=== PATIENT | female | born 1990 | race Caucasian/White ===

== ENCOUNTER 2016-05-24 12:18 | Inpatient (IN) | payer OTHER ==
[2016-05-24] VITALS (8 sets, daily range): BP systolic 122–138; BP diastolic 64–78; PULSE 78–118; RESP 15–18; TEMP 98.3–100.7; O2SAT 96–99
[~2016-05-24] VITALS: Ht 172.7 cm; Wt 75.8 kg
[~2016-05-24 12:18] MED LIST: CYTO5TAB PO; DIFL150T PO; HUMALOG SQ; IBUP-232 PO; LANTUS2P SQ; SYNT300T PO; ULTR50TA5 PO
[2016-05-24] MEDS ORDERED: SODIUM CHLOR 0.9% 1000 ML INJ 1,000 ML IV SCH ×2 (13:37→16:46)
[2016-05-24] MEDS ORDERED: ONDANSETRON HCL 4 MG/2 ML VIAL IVP ONE (13:45)
[2016-05-24] MEDS ORDERED: KETOROLAC TROMETHAMINE 30 MG/ML (IVP) VIAL IVP ONE (13:45)
[2016-05-24] MEDS ORDERED: SODIUM CHLORIDE 0.9% FLUSH 5 ML FLUSH IVF PRN (13:45)
[2016-05-24] MEDS ORDERED: ACETAMINOPHEN 325 MG TAB PO ONE (13:45)
[2016-05-24] MEDS ORDERED: cefTRIAXone INJ 1,000 MG in SODIUM CHLORIDE 0.9% INJ 100 ML IV ONE (13:45)
[2016-05-24] MEDS ORDERED: MORPHINE SULFATE 4 MG/ML INJ IV PUSH ONE (13:45)
[2016-05-24 13:55] LABS: AUTOMATED NEUTROPHIL # 13.5 TH/MM3 (1.8-7.7); BASOPHIL # 0.1 TH/MM3 (0-0.2); BASOPHIL % 0.4 % (0.0-2.0); EOSINOPHIL % 0.1 % (0.0-4.0); HEMATOCRIT 39.1 % (35.0-46.0); LYMPH % 8.3 % (9.0-44.0); LYMPHOCYTE # 1.3 TH/MM3 (1.0-4.8); MEAN CELL VOLUME 87.6 FL (80.0-100.0); MEAN CORPUSCULAR HEMOGLOBIN 30.6 PG (27.0-34.0); MONO % 5.9 % (0.0-8.0); NEUT % 85.3 % (16.0-70.0); PLATELET COUNT 257 TH/MM3 (150-450); RED BLOOD COUNT 4.46 MIL/MM3 (4.00-5.30); RED CELL DISTRIBUTION WIDTH 11.4 % (11.6-17.2); WHITE BLOOD COUNT 15.8 TH/MM3 (4.0-11.0)
[2016-05-24 13:56] LABS: HEMO FLAGS DIFF FINAL
--- NOTE | 2016-05-24 14:00 | PD ---
HPI Chief Complaint: GI Complaint Time Seen by Provider: 13:20 Travel History International Travel<30 days: No Contact w/Intl Traveler<30days: No Traveled to known affect area: No History of Present Illness HPI The patient is a 26-year-old female who presents emergency department for right flank pain. The patient states she was seen in the emergency department several days ago for pelvic discomfort. The patient had a pelvic examination at that time and was diagnosed the [place] infection. The patient states she returned home and took the Diflucan, however, she subsequently developed nausea and vomiting. The patient states she's had persistent nausea and vomiting of last several days with increasing right flank pain radiated up to the mid right back. She does note nausea and vomiting but denies any diarrhea. She also complains of dysuria, frequency, and urgency. She denies any vaginal bleeding or discharge. The patient states her last menstrual cycle was 2 weeks ago. She denies , does not have sexual activity with men. The patient denies any previous abdominal surgeries. She denies any history of pancreatitis, cholecystitis, or nephrolithiasis. PFSH Past Medical History Arthritis: Yes Asthma: Yes Bipolar Disorder: Yes Anxiety: Yes Depression: Yes Cancer: No Cardiovascular Problems: Yes Diabetes: Yes (Type 1) Patient Takes Glucophage: No Diminished Hearing: No Endocrine: Yes Gastrointestinal Disorders: Yes (OCCASIONAL DIARRHEA /CONSTIPATION) GERD: Yes Genitourinary: Yes Headaches: Yes Hypertension: Yes Immune Disorder: Yes (CATHLEEN DISEASE) Implanted Vascular Access Dvce: Yes Musculoskeletal: Yes Neurologic: Yes Psychiatric: Yes Reproductive: Yes (VAGINAL DRYNESS PER PATIENT) Respiratory: Yes Immunizations Current: Yes Migraines: Yes Schizophrenia: Yes Thyroid Disease: Yes ?: Not LMP: 2 weeks ago Past Surgical History Body Medical Devices: BCP IMPLANT LEFT UPPER ARM Oral Surgery: Yes (T AND A- AGE 8, WISDOM TEETH-AGE 16) Tonsillectomy: Yes Other Surgery: No Social History Alcohol Use: Yes (OCC) Tobacco Use: Yes (1 pk) Substance Use: No Allergies-Medications (Allergen,Severity, Reaction): Coded Allergies: No Known Allergies (Unverified , 05/24/16) Reported Meds & Prescriptions Reported Meds & Active Scripts Active Ibuprofen 600 Mg Tab 600 Mg PO Q6H PRN Ultram (Tramadol HCl) 50 Mg Tab 50 Mg PO Q6H PRN Reported Cytomel (Liothyronine Sodium) 5 Mcg Tab 5 Mcg PO DAILY Synthroid (Levothyroxine Sodium) 300 Mcg Tab 300 Mcg PO DAILY Lantus Inj (Insulin Glargine) 1,000 Unit/10 Ml Vial 30 Units SQ HS Humalog Inj (Insulin Human Lispro) 1,000 Unit/10 Ml Vial 2-12 Units SQ ACHS Max dose at bedtime:( )units; sugars < 70,(0)units; sugars 150-199,(2)units; sugars 200-249,(4)units; sugars 250-299,(7)units; sugars 300-349,(10)units; sugars more than 349,(12)units. Review of Systems Except as stated in HPI: all other systems reviewed are Neg General / Constitutional: Positive: Fever, Chills Cardiovascular: No: Chest Pain or Discomfort Respiratory: No: Shortness of Breath Gastrointestinal: Positive: Nausea, Vomiting, Abdominal Pain, No: Diarrhea Genitourinary: Positive: Urgency, Frequency, Dysuria, Flank Pain Musculoskeletal: Positive: Myalgias Skin: No Rash Physical Exam Narrative GENERAL: Awake, alert, pleasant 26 year-old female who appears her stated age and is in no acute respiratory distress. SKIN: Warm and dry. HEAD: Atraumatic. Normocephalic. EYES: Pupils equal and round. No scleral icterus. No injection or drainage. ENT: No nasal bleeding or discharge. Slightly dry mucous membranes.. NECK: Trachea midline. No JVD. CARDIOVASCULAR: Regular, tachycardic with a heart rate of 110. RESPIRATORY: No accessory muscle use. Clear to auscultation. Breath sounds equal bilaterally. GASTROINTESTINAL: Abdomen soft, mild suprapubic tenderness. Back: Right CVA tenderness. MUSCULOSKELETAL: No obvious deformities. No clubbing. No cyanosis. No edema. NEUROLOGICAL: Awake and alert. No obvious cranial nerve deficits. Motor grossly within normal limits. Normal speech. PSYCHIATRIC: Appropriate mood and affect; insight and judgment normal. Data Data Last Documented VS Vital Signs Date Time Temp Pulse Resp B/P Pulse Ox O2 Delivery O2 Flow Rate FiO2 05/24/16 16:36 98.3 80 15 136/72 98 Room Air Orders Complete Blood Count With Diff (05/24/16 13:37) Comprehensive Metabolic Panel (05/24/16 13:37) Lipase (05/24/16 13:37) Lactic Acid (05/24/16 13:37) Urinalysis - C+S If Indicated (05/24/16 13:37) Iv Access Insert/Monitor (05/24/16 13:37) Ecg Monitoring (05/24/16 13:37) Oximetry (05/24/16 13:37) Morphine Inj (Morphine Inj) (05/24/16 13:45) Ondansetron Inj (Zofran Inj) (05/24/16 13:45) Ceftriaxone Inj (Rocephin Inj) (05/24/16 13:45) Sodium Chlor 0.9% 1000 Ml Inj (Ns 1000 M (05/24/16 13:37) Sodium Chloride 0.9% Flush (Ns Flush) (05/24/16 13:45) Ketorolac Inj (Toradol Inj) (05/24/16 13:45) Ed Urine Pregnancytest Poc (05/24/16 13:37) Acetaminophen (Tylenol) (05/24/16 13:45) Sodium Chlor 0.9% 1000 Ml Inj (Ns 1000 M (05/24/16 16:00) Urine Culture (05/24/16 15:02) Resp Blood Gas Venous (05/24/16 ) Beta Hydroxybutyrate (Acetone) (05/24/16 15:48) Ct Abd/Pel W/O Iv Contrast (05/24/16 ) Blood Gas Venous (Vbg) (05/24/16 16:00) Sodium Chlor 0.9% 1000 Ml Inj (Ns 1000 M (05/24/16 16:46) Dext 5%-Nacl 0.9% 1000 Ml Inj (D5w-Ns 10 (05/24/16 16:46) Insulin Human Regular Inj (Novolin R Inj (05/24/16 17:00) Insulin Regular (Iv Infusion) (Novolin R (05/24/16 17:00) Potassium Chlor 40 Meq Premix (Kcl 40 Me (05/24/16 17:00) Potassium Chlor 40 Meq Premix (Kcl 40 Me (05/24/16 17:00) Potassium Chlor 20 Meq Premix (Kcl 20 Me (05/24/16 17:00) Potassium Chlor 20 Meq Premix (Kcl 20 Me (05/24/16 17:00) Potassium Chlor 20 Meq Premix (Kcl 20 Me (05/24/16 17:00) Potassium Chlor 20 Meq Premix (Kcl 20 Me (05/24/16 17:00) Potassium Chlor 20 Meq Premix (Kcl 20 Me (05/24/16 17:00) Potassium Chlor 20 Meq Premix (Kcl 20 Me (05/24/16 17:00) Sodium Bicarbonate 8.4% Inj (Sodium Bica (05/24/16 17:00) Sodium Bicarbonate 8.4% Inj (Sodium Bica (05/24/16 17:00) Sodium Phosphate Inj (Sodium Phosphate I (05/24/16 17:00) Admit Order (Ed Use Only) (05/24/16 17:47) Labs Laboratory Tests Test 05/24/16 05/24/16 05/24/16 13:45 15:02 16:00 White Blood Count 15.8 TH/MM3 Red Blood Count 4.46 MIL/MM3 Hemoglobin 13.7 GM/DL Hematocrit 39.1 % Mean Corpuscular Volume 87.6 FL Mean Corpuscular Hemoglobin 30.6 PG Mean Corpuscular Hemoglobin 35.0 % Concent Red Cell Distribution Width 11.4 % Platelet Count 257 TH/MM3 Mean Platelet Volume 7.4 FL Neutrophils (%) (Auto) 85.3 % Lymphocytes (%) (Auto) 8.3 % Monocytes (%) (Auto) 5.9 % Eosinophils (%) (Auto) 0.1 % Basophils (%) (Auto) 0.4 % Neutrophils # (Auto) 13.5 TH/MM3 Lymphocytes # (Auto) 1.3 TH/MM3 Monocytes # (Auto) 0.9 TH/MM3 Eosinophils # (Auto) 0.0 TH/MM3 Basophils # (Auto) 0.1 TH/MM3 CBC Comment DIFF FINAL Differential Comment Sodium Level 134 MEQ/L Potassium Level 4.0 MEQ/L Chloride Level 101 MEQ/L Carbon Dioxide Level 15.9 MEQ/L Anion Gap 17 MEQ/L Blood Urea Nitrogen 9 MG/DL Creatinine 0.60 MG/DL Estimat Glomerular Filtration 121 ML/MIN Rate Random Glucose 271 MG/DL Lactic Acid Level 1.0 mmol/L Calcium Level 8.8 MG/DL Total Bilirubin 0.7 MG/DL Aspartate Amino Transf 8 U/L (AST/SGOT) Alanine Aminotransferase 18 U/L (ALT/SGPT) Alkaline Phosphatase 67 U/L Total Protein 7.0 GM/DL Albumin 3.1 GM/DL Lipase 54 U/L Urine Collection Type VOIDED Urine Color YELLOW Urine Turbidity CLEAR Urine pH 6.0 Urine Specific [place] 1.030 Urine Protein TRACE mg/dL Urine Glucose (UA) 500 mg/dL Urine Ketones 80 OR GREATER mg/dL Urine Occult Blood TRACE Urine Nitrite NEG Urine Bilirubin NEG Urine Leukocyte Esterase NEG Urine WBC 9-14 /hpf Urine Squamous Epithelial 0-2 /hpf Cells Urine Bacteria RARE /hpf Microscopic Urinalysis Comment CULTURE INDICATED Blood Gas Puncture Site IV Blood Gas Patient Temperature 98.6 Venous Blood pH 7.33 Venous Blood Partial Pressure 30 mmHg CO2 Venous Blood Partial Pressure 57 mmHg O2 Venous Blood HCO3 16 mmol/L Venous Blood Oxygen Saturation 85 % Venous Blood Oxygen Content 15.3 Vol % Venous Blood Base Excess -9.1 mmol/L Oxygen Delivery Device ROOM AIR B-Hydroxybutyrate 3.67 MMOL/L MDM Medical Decision Making Medical Screen Exam Complete: Yes Emergency Medical Condition: Yes Medical Record Reviewed: Yes Interpretation(s) Laboratory Tests Test 05/24/16 05/24/16 13:45 15:02 White Blood Count 15.8 TH/MM3 Red Blood Count 4.46 MIL/MM3 Hemoglobin 13.7 GM/DL Hematocrit 39.1 % Mean Corpuscular Volume 87.6 FL Mean Corpuscular Hemoglobin 30.6 PG Mean Corpuscular Hemoglobin 35.0 % Concent Red Cell Distribution Width 11.4 % Platelet Count 257 TH/MM3 Mean Platelet Volume 7.4 FL Neutrophils (%) (Auto) 85.3 % Lymphocytes (%) (Auto) 8.3 % Monocytes (%) (Auto) 5.9 % Eosinophils (%) (Auto) 0.1 % Basophils (%) (Auto) 0.4 % Neutrophils # (Auto) 13.5 TH/MM3 Lymphocytes # (Auto) 1.3 TH/MM3 Monocytes # (Auto) 0.9 TH/MM3 Eosinophils # (Auto) 0.0 TH/MM3 Basophils # (Auto) 0.1 TH/MM3 CBC Comment DIFF FINAL Differential Comment Sodium Level 134 MEQ/L Potassium Level 4.0 MEQ/L Chloride Level 101 MEQ/L Carbon Dioxide Level 15.9 MEQ/L Anion Gap 17 MEQ/L Blood Urea Nitrogen 9 MG/DL Creatinine 0.60 MG/DL Estimat Glomerular Filtration 121 ML/MIN Rate Random Glucose 271 MG/DL Lactic Acid Level 1.0 mmol/L Calcium Level 8.8 MG/DL Total Bilirubin 0.7 MG/DL Aspartate Amino Transf 8 U/L (AST/SGOT) Alanine Aminotransferase 18 U/L (ALT/SGPT) Alkaline Phosphatase 67 U/L Total Protein 7.0 GM/DL Albumin 3.1 GM/DL Lipase 54 U/L Urine Collection Type VOIDED Urine Color YELLOW Urine Turbidity CLEAR Urine pH 6.0 Urine Specific [place] 1.030 Urine Protein TRACE mg/dL Urine Glucose (UA) 500 mg/dL Urine Ketones 80 OR GREATER mg/dL Urine Occult Blood TRACE Urine Nitrite NEG Urine Bilirubin NEG Urine Leukocyte Esterase NEG Urine WBC 9-14 /hpf Urine Squamous Epithelial 0-2 /hpf Cells Urine Bacteria RARE /hpf Microscopic Urinalysis Comment CULTURE INDICATED Differential Diagnosis Differential diagnosis includes pyelonephritis, UTI, atypical appendicitis, atypical cholecystitis, nephrolithiasis, sepsis, colitis, gastritis, viral syndrome, influenza. Narrative Course IV was established, labs were drawn and sent, and the patient was placed on cardiac telemetry monitoring and continuous pulse oximetry monitoring. UA was sent to lab and bedside UA test was obtained. I reviewed the patient' s EMR, she had negative gonorrhea/chlamydia PCR as well as negative urine culture. The patient's wet prep was also negative. Patient's white count was mildly elevated at 14.3. The patient's anion gap was mildly elevated with decreased bicarbonate and elevated beta hydroxy, consistent with DKA. The patient was administered a second liter of IV fluids. CT of the abdomen and pelvis was ordered to evaluate for possible perinephric abscess and/or appendicitis. The patient was signed out to the oncoming physician, Dr. Gomez, 4 PM. Patient will be admitted. Diagnosis Primary Impression: Pyelonephritis Additional Impression: DKA (diabetic ketoacidoses) Qualified Code: E10.10 - Diabetic ketoacidosis without coma associated with type 1 diabetes mellitus Condition: Stable Dwayne Michael MD May 24, 2016 14:00
[2016-05-24 14:01] LABS: CHLORIDE 101 MEQ/L (98-107); SODIUM (NA) 134 MEQ/L (136-145)
[2016-05-24 14:06] LABS: ANION GAP 17 MEQ/L (5-15); BICARBONATE 15.9 MEQ/L (21.0-32.0)
[2016-05-24 14:16] LABS: ALKALINE PHOSPHATASE 67 U/L (45-117); ALT (GPT) 18 U/L (10-53); AST (GOT) 8 U/L (15-37); BLOOD UREA NITROGEN 9 MG/DL (7-18); GLOMERULAR FILTRATION RATE 121 ML/MIN (>89); TOTAL BILIRUBIN ADULT 0.7 MG/DL (0.2-1.0)
[2016-05-24 15:43] LABS: BLOOD, URINE TRACE (NEG); GLUCOSE,URINE 500 mg/dL (NEG); NITRITE,URINE NEG (NEG)
[2016-05-24 15:45] LABS: KETONE, URINE 80 OR GREATER mg/dL (NEG)
[2016-05-24 15:47] LABS: METHOD OF COLLECTION VOIDED; URINE COLOR YELLOW (YELLW/STRAW)
[2016-05-24 15:48] LABS: BACTERIA, URINE RARE /hpf; COMMENT (UR) CULTURE INDICATED; CULTURE IF INDICATED CULTURE INDICATED; SQUAMOUS EPITHELIAL CELL URINE 0-2 /hpf (0-5)
[2016-05-24] MEDS ORDERED: SODIUM CHLOR 0.9% 1000 ML INJ 1,000 ML IV ONE (16:00)
[2016-05-24 16:13] LABS: BLOOD GAS VENOUS BASE EXCESS -9.1 mmol/L (-2-2); BLOOD GAS VENOUS HCO3 16 mmol/L (22-26); BLOOD GAS VENOUS O2 CONTENT 15.3 Vol % (9.0-17.0); BLOOD GAS VENOUS O2 HGB SAT 85 % (70-76); BLOOD GAS VENOUS PCO2 30 mmHg (44-48); BLOOD GAS VENOUS PO2 57 mmHg (35-40); BLOOD GAS VENOUS pH 7.33 (7.360-7.400); CRITICAL VALUE NO; DRAW SITE IV; OXYGEN DEVICE ROOM AIR; STAT YES; TEMP CORR TO 98.6
[2016-05-24] MEDS ORDERED: INSULIN HUMAN REGULAR 1,000 UNITS/10 ML VIAL IV PUSH ONE (17:00)
[2016-05-24] MEDS ORDERED: POTASSIUM CHLOR 40 MEQ PREMIX 100 ML IV PRN ×2 (17:00)
[2016-05-24] MEDS ORDERED: INSULIN REGULAR (IV INFUSION) 100 UNITS in SODIUM CHLORIDE 0.9% INJ 99 ML IV SCH (17:00)
[2016-05-24] MEDS ORDERED: SODIUM PHOSPHATE INJ 15 MMOL in SODIUM CHLORIDE 0.9% INJ 100 ML IV PRN (17:00)
[2016-05-24] MEDS ORDERED: SODIUM BICARBONATE 8.4% SOLN 50 MEQ/50 ML VIAL IV PRN ×2 (17:00)
[2016-05-24] MEDS ORDERED: POTASSIUM CHLOR 20 MEQ PREMIX 100 ML IV PRN ×6 (17:00)
--- NOTE | 2016-05-24 17:30 | RADHPO ---
EXAM DATE/TIME: 05/24/2016 17:05 [facility] COMPARISON: No previous studies available for comparison. INDICATIONS : Right flank pain. Elevated white count. Vomiting. ORAL CONTRAST: No oral contrast ingested. RADIATION DOSE: 10.38 CTDIvol (mGy) MEDICAL HISTORY : Hypertension. Diabetes mellitus type 1. SURGICAL HISTORY : None. ENCOUNTER: Initial ACUITY: 4 - 6 days PAIN SCALE: 2/10 LOCATION: Right flank TECHNIQUE: Volumetric scanning of the abdomen and pelvis was performed. Using automated exposure control and ad justment of the mA and/or kV according to patient size, radiation dose was kept as low as reasonably achievable to obtain optimal diagnostic quality images. FINDINGS: LOWER LUNGS: The visualized lower lungs are clear. LIVER: Homogeneous density without lesion. There is no dilation of the biliary tree. No calcified gallston es. SPLEEN: Normal size without lesion. PANCREAS: Within normal limits. KIDNEYS: Normal in size and shape. There is no mass, stone, or hydronephrosis. There is questionable mild str anding around the right kidney. ADRENAL GLANDS: Within normal limits. VASCULAR: There is no aortic aneurysm. BOWEL/MESENTERY: The stomach, small bowel, and colon demonstrate no acute abnormality. There is no free intraperitone al air or fluid. Appendix is not visualized. ABDOMINAL WALL: Within normal limits. RETROPERITONEUM: There is no lymphadenopathy. BLADDER: No wall thickening or mass. REPRODUCTIVE: Within normal limits. INGUINAL: There is no lymphadenopathy or hernia. MUSCULOSKELETAL: Within normal limits for patient age. CONCLUSION: There is questionable inflammatory stranding around the right kidney. This is a nonspecific finding b ut can be seen with pyelonephritis which would fit with the clinical history. This condition is ideal ly diagnosed on a contrast enhanced abdomen and pelvis CT but since it was requested as a noncontrast examination consider followup if clinical diagnosis remains uncertain and symptoms persist. Jose Levy MD on May 24, 2016 at 17:23 Board Certified Radiologist. This report was verified electronically.
--- NOTE | 2016-05-24 17:47 | PD ---
Data Data Last Documented VS Vital Signs Date Time Temp Pulse Resp B/P Pulse Ox O2 Delivery O2 Flow Rate FiO2 05/24/16 16:36 98.3 80 15 136/72 98 Room Air Orders Complete Blood Count With Diff (05/24/16 13:37) Comprehensive Metabolic Panel (05/24/16 13:37) Lipase (05/24/16 13:37) Lactic Acid (05/24/16 13:37) Urinalysis - C+S If Indicated (05/24/16 13:37) Iv Access Insert/Monitor (05/24/16 13:37) Ecg Monitoring (05/24/16 13:37) Oximetry (05/24/16 13:37) Morphine Inj (Morphine Inj) (05/24/16 13:45) Ondansetron Inj (Zofran Inj) (05/24/16 13:45) Ceftriaxone Inj (Rocephin Inj) (05/24/16 13:45) Sodium Chlor 0.9% 1000 Ml Inj (Ns 1000 M (05/24/16 13:37) Sodium Chloride 0.9% Flush (Ns Flush) (05/24/16 13:45) Ketorolac Inj (Toradol Inj) (05/24/16 13:45) Ed Urine Pregnancytest Poc (05/24/16 13:37) Acetaminophen (Tylenol) (05/24/16 13:45) Sodium Chlor 0.9% 1000 Ml Inj (Ns 1000 M (05/24/16 16:00) Urine Culture (05/24/16 15:02) Resp Blood Gas Venous (05/24/16 ) Beta Hydroxybutyrate (Acetone) (05/24/16 15:48) Ct Abd/Pel W/O Iv Contrast (05/24/16 ) Blood Gas Venous (Vbg) (05/24/16 16:00) ^ Mortgage Collector / Telemetry (05/24/16 16:46) ^ Insert Iv (05/24/16 16:46) Diet Npo (05/24/16 Dinner) Sodium Chlor 0.9% 1000 Ml Inj (Ns 1000 M (05/24/16 16:46) Dext 5%-Nacl 0.9% 1000 Ml Inj (D5w-Ns 10 (05/24/16 16:46) Insulin Human Regular Inj (Novolin R Inj (05/24/16 17:00) Insulin Regular (Iv Infusion) (Novolin R (05/24/16 17:00) Potassium Chlor 40 Meq Premix (Kcl 40 Me (05/24/16 17:00) Potassium Chlor 40 Meq Premix (Kcl 40 Me (05/24/16 17:00) Potassium Chlor 20 Meq Premix (Kcl 20 Me (05/24/16 17:00) Potassium Chlor 20 Meq Premix (Kcl 20 Me (05/24/16 17:00) Potassium Chlor 20 Meq Premix (Kcl 20 Me (05/24/16 17:00) Potassium Chlor 20 Meq Premix (Kcl 20 Me (05/24/16 17:00) Potassium Chlor 20 Meq Premix (Kcl 20 Me (05/24/16 17:00) Potassium Chlor 20 Meq Premix (Kcl 20 Me (05/24/16 17:00) Sodium Bicarbonate 8.4% Inj (Sodium Bica (05/24/16 17:00) Sodium Bicarbonate 8.4% Inj (Sodium Bica (05/24/16 17:00) Sodium Phosphate Inj (Sodium Phosphate I (05/24/16 17:00) Hemoglobin (Hgb) A1c (05/24/16 16:46) Basic Metabolic Panel (Bmp) (05/24/16 21:46) Basic Metabolic Panel (Bmp) (05/25/16 03:46) Basic Metabolic Panel (Bmp) (05/25/16 09:46) Basic Metabolic Panel (Bmp) (05/25/16 15:46) Magnesium (Mg) (05/24/16 21:46) Magnesium (Mg) (05/25/16 03:46) Magnesium (Mg) (05/25/16 09:46) Magnesium (Mg) (05/25/16 15:46) Phosphorus (Po4) (05/24/16 21:46) Phosphorus (Po4) (05/25/16 03:46) Phosphorus (Po4) (05/25/16 09:46) Phosphorus (Po4) (05/25/16 15:46) Beta Hydroxybutyrate (Acetone) (05/25/16 03:46) Beta Hydroxybutyrate (Acetone) (05/25/16 15:46) Labs Laboratory Tests Test 05/24/16 05/24/16 05/24/16 13:45 15:02 16:00 White Blood Count 15.8 TH/MM3 Red Blood Count 4.46 MIL/MM3 Hemoglobin 13.7 GM/DL Hematocrit 39.1 % Mean Corpuscular Volume 87.6 FL Mean Corpuscular Hemoglobin 30.6 PG Mean Corpuscular Hemoglobin 35.0 % Concent Red Cell Distribution Width 11.4 % Platelet Count 257 TH/MM3 Mean Platelet Volume 7.4 FL Neutrophils (%) (Auto) 85.3 % Lymphocytes (%) (Auto) 8.3 % Monocytes (%) (Auto) 5.9 % Eosinophils (%) (Auto) 0.1 % Basophils (%) (Auto) 0.4 % Neutrophils # (Auto) 13.5 TH/MM3 Lymphocytes # (Auto) 1.3 TH/MM3 Monocytes # (Auto) 0.9 TH/MM3 Eosinophils # (Auto) 0.0 TH/MM3 Basophils # (Auto) 0.1 TH/MM3 CBC Comment DIFF FINAL Differential Comment Sodium Level 134 MEQ/L Potassium Level 4.0 MEQ/L Chloride Level 101 MEQ/L Carbon Dioxide Level 15.9 MEQ/L Anion Gap 17 MEQ/L Blood Urea Nitrogen 9 MG/DL Creatinine 0.60 MG/DL Estimat Glomerular Filtration 121 ML/MIN Rate Random Glucose 271 MG/DL Lactic Acid Level 1.0 mmol/L Calcium Level 8.8 MG/DL Total Bilirubin 0.7 MG/DL Aspartate Amino Transf 8 U/L (AST/SGOT) Alanine Aminotransferase 18 U/L (ALT/SGPT) Alkaline Phosphatase 67 U/L Total Protein 7.0 GM/DL Albumin 3.1 GM/DL Lipase 54 U/L Urine Collection Type VOIDED Urine Color YELLOW Urine Turbidity CLEAR Urine pH 6.0 Urine Specific [place] 1.030 Urine Protein TRACE mg/dL Urine Glucose (UA) 500 mg/dL Urine Ketones 80 OR GREATER mg/dL Urine Occult Blood TRACE Urine Nitrite NEG Urine Bilirubin NEG Urine Leukocyte Esterase NEG Urine WBC 9-14 /hpf Urine Squamous Epithelial 0-2 /hpf Cells Urine Bacteria RARE /hpf Microscopic Urinalysis Comment CULTURE INDICATED Blood Gas Puncture Site IV Blood Gas Patient Temperature 98.6 Venous Blood pH 7.33 Venous Blood Partial Pressure 30 mmHg CO2 Venous Blood Partial Pressure 57 mmHg O2 Venous Blood HCO3 16 mmol/L Venous Blood Oxygen Saturation 85 % Venous Blood Oxygen Content 15.3 Vol % Venous Blood Base Excess -9.1 mmol/L Oxygen Delivery Device ROOM AIR B-Hydroxybutyrate 3.67 MMOL/L MDM Supervised Visit with ALBERT: No Narrative Course The patient was initially evaluated by the previous provider and sent out to me at the beginning of my shift pending CT abdomen pelvis, VBG, beta hydroxybutyrate, and disposition. See his note for further details. Briefly this is a 26-year-old female with history of insulin dependent diabetes who is here for evaluation of right flank pain. The patient was seen in the emergency department recently with pelvic discomforts, diagnosed with a yeast infection and discharged home. Patient reports feeling nauseous with multiple episodes of vomiting as well as right flank pain. Initial vital signs showed a heart rate of 115, blood pressure 124/78, pulse ox 98% on room air, oral temp of 100.7F. CBC is remarkable for WBC 15.8 with 85.3% neutrophils. CMP is remarkable for bicarbonate 15.9, anion gap 17, random glucose 271. Beta hydroxybutyrate is 3.67. ABG shows a pH of 7.33. UA suggestive UTI and also shows 80 years greater ketones. The patient was given 2 L of IV fluids and IV Rocephin by the previous provider. She was started on DKA protocol by me. CT abdomen pelvis without contrast is suggestive of pyelonephritis which is likely causing her slight DKA. She'll be admitted for further treatment and evaluation. Patient was made aware of all findings and plan for admission. Case discussed with hospitalist Dr. Alvarez who will admit the patient to his service. Diagnosis Primary Impression: DKA (diabetic ketoacidoses) Qualified Code: E10.10 - Diabetic ketoacidosis without coma associated with type 1 diabetes mellitus Additional Impression: Pyelonephritis Admitting Information Admitting Physician Requests: Admit Condition: Stable Mike Gomez MD May 24, 2016 17:47
[2016-05-24] MEDS ORDERED: NALOXONE HCL 0.4 MG/ML AMP IV PRN ×2 (18:00→19:00)
--- NOTE | 2016-05-24 18:19 | HHI.HP ---
[facility] Service [facility] Primary Care Physician Non-Staff Admission Diagnosis DKA, pyelonephritis Diagnoses: (1) Sepsis Diagnosis: Principal (2) DKA (diabetic ketoacidoses) Diagnosis: Principal (3) Pyelonephritis Diagnosis: Principal Chief Complaint: UTI Travel History International Travel<30 Days: No Contact w/Intl Traveler <30 Da: No Traveled to Known Affected Are: No Sepsis Criteria SIRS Criteria (2 or more): Heart rate over 90, WBC > 89176, < 4000 or > 10% bands Sepsis Criteria (SIRS+source): Infect source susp/known Criteria Outcome: Meets sepsis criteria History of Present Illness 26-year-old female with 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 The patient states she had a UTI and took antibiotics without relief. She states she also took Monistat without relief. She states she came to the ED 2 days ago and was prescribed Diflucan for yeast infection. She states she has had fevers, chills, and body aches. She states she has been vomiting nonstop for the last 2 days. She states she has had recurrent fevers and is taking 600 mg ibuprofen and Tylenol without alleviation. Admits to dysuria but denies any increased urinary frequency. Denies any diarrhea. She admits to cough and left-sided chest pain in the morning. Review of Systems Other ROS x 10 negative unless otherwise indicated in HPI. Past Family Social History Past Medical History Type 1 diabetes, diagnosed at age 17. Luis's disease History of migraines Patient has been admitted 3 times for psychiatric illness: psychotic and mood disorder. EMR indicates history of anxiety, depression, and schizophrenia but patient denies. Patient does state she was diagnosed with bipolar disorder 2 years ago but she is not currently on any medications and has not any issues with this since. EMR indicates history of headaches and hypertension. Past Surgical History Tonsillectomy and adenoidectomy Reported Medications Ibuprofen 600 Mg Tab 600 Mg PO Q6H PRN Ultram (Tramadol HCl) 50 Mg Tab 50 Mg PO Q6H PRN Diflucan (Fluconazole) 150 Mg Tab 150 Mg PO ONCE Reported Cytomel (Liothyronine Sodium) 5 Mcg Tab 5 Mcg PO DAILY Synthroid (Levothyroxine Sodium) 300 Mcg Tab 300 Mcg PO DAILY Lantus Inj (Insulin Glargine) 1,000 Unit/10 Ml Vial 30 Units SQ HS Humalog Inj (Insulin Human Lispro) 1,000 Unit/10 Ml Vial 2-12 Units SQ ACHS Max dose at bedtime:( )units; sugars < 70,(0)units; sugars 150-199,(2)units; sugars 200-249,(4)units; sugars 250-299,(7)units; sugars 300-349,(10)units; sugars more than 349,(12)units. Allergies: Coded Allergies: No Known Allergies (Unverified , 05/24/16) Family History Mother and brother with Luis's. Father: Type II diabetic Social History Rarely drinks alcohol. Smokes 1 pack per day of cigarettes. Denies illicit drug use including IVDA. Physical Exam Vital Signs Vital Signs Date Time Temp Pulse Resp B/P Pulse Ox O2 Delivery O2 Flow Rate FiO2 05/24/16 16:36 98.3 80 15 136/72 98 Room Air 05/24/16 15:10 98.3 78 15 122/75 97 Room Air 05/24/16 15:08 15 05/24/16 15:08 15 05/24/16 14:05 15 05/24/16 13:30 99 Room Air 05/24/16 12:26 100.7 115 16 124/78 98 Physical Exam GENERAL: This is a well-nourished, well-developed patient, in no apparent distress. SKIN: No rashes, ecchymoses or lesions. Cool and dry. HEAD: Atraumatic. Normocephalic. EYES: No scleral icterus. No injection or drainage. ENT: Dry mucous membranes. Airway patent. NECK: Trachea midline. CARDIOVASCULAR: Regular rate and rhythm. RESPIRATORY: Clear to auscultation. Breath sounds equal bilaterally. No wheezes , rales, or rhonchi. GASTROINTESTINAL: Abdomen soft, non-tender, nondistended. MUSCULOSKELETAL: No lower extremity edema. BACK: Right sided CVA tenderness. NEUROLOGICAL: Awake and alert. Motor grossly within normal limits. Normal speech. Laboratory Laboratory Tests Test 05/24/16 05/24/16 05/24/16 13:45 15:02 16:00 White Blood Count 15.8 Red Blood Count 4.46 Hemoglobin 13.7 Hematocrit 39.1 Mean Corpuscular Volume 87.6 Mean Corpuscular Hemoglobin 30.6 Mean Corpuscular Hemoglobin 35.0 Concent Red Cell Distribution Width 11.4 Platelet Count 257 Mean Platelet Volume 7.4 Neutrophils (%) (Auto) 85.3 Lymphocytes (%) (Auto) 8.3 Monocytes (%) (Auto) 5.9 Eosinophils (%) (Auto) 0.1 Basophils (%) (Auto) 0.4 Neutrophils # (Auto) 13.5 Lymphocytes # (Auto) 1.3 Monocytes # (Auto) 0.9 Eosinophils # (Auto) 0.0 Basophils # (Auto) 0.1 CBC Comment DIFF FINAL Differential Comment Sodium Level 134 Potassium Level 4.0 Chloride Level 101 Carbon Dioxide Level 15.9 Anion Gap 17 Blood Urea Nitrogen 9 Creatinine 0.60 Estimat Glomerular Filtration 121 Rate Random Glucose 271 Lactic Acid Level 1.0 Calcium Level 8.8 Total Bilirubin 0.7 Aspartate Amino Transf 8 (AST/SGOT) Alanine Aminotransferase 18 (ALT/SGPT) Alkaline Phosphatase 67 Total Protein 7.0 Albumin 3.1 Lipase 54 Urine Collection Type VOIDED Urine Color YELLOW Urine Turbidity CLEAR Urine pH 6.0 Urine Specific [place] 1.030 Urine Protein TRACE Urine Glucose (UA) 500 Urine Ketones 80 OR GREATER Urine Occult Blood TRACE Urine Nitrite NEG Urine Bilirubin NEG Urine Leukocyte Esterase NEG Urine WBC 9-14 Urine Squamous Epithelial 0-2 Cells Urine Bacteria RARE Microscopic Urinalysis Comment CULTURE INDICATED Blood Gas Puncture Site IV Blood Gas Patient Temperature 98.6 Venous Blood pH 7.33 Venous Blood Partial Pressure 30 CO2 Venous Blood Partial Pressure 57 O2 Venous Blood HCO3 16 Venous Blood Oxygen Saturation 85 Venous Blood Oxygen Content 15.3 Venous Blood Base Excess -9.1 Oxygen Delivery Device ROOM AIR B-Hydroxybutyrate 3.67 Date/Time Procedure Status Source Growth 05/24/16 15:02 Urine Culture Received Urine Random Urine Pending Result Diagram: 05/24/16 1345 05/24/16 1345 Imaging Last Impressions Abdomen/Pelvis CT 05/24/16 0000 Signed Impressions: Service Date/Time: April 17:05 - CONCLUSION: There is questionable inflammatory stranding around the right kidney. This is a nonspecific finding but can be seen with pyelonephritis which would fit with the clinical history. This condition is ideally diagnosed on a contrast enhanced abdomen and pelvis CT but since it was requested as a noncontrast examination consider followup if clinical diagnosis remains uncertain and symptoms persist. Jose Levy MD Assessment and Plan Assessment and Plan 26-year-old female with: Sepsis: Tachycardic 115. White blood cell count 15.8. Source of infection pyelonephritis. Lactic acid normal. -Telemetry, vitals -IV fluids -Antibiotics as below -Blood cultures 2 ordered -Monitor CBC Pyelonephritis: UA reviewed with 9-14 white blood cells, trace blood. No leukocyte esterase or nitrites. UA/culture was performed on 05/22 and appeared as contamination. Patient had pelvic exam performed on 05/22 in ED which clinically indicated yeast yet wet prep was negative for yeast as well as BV and Trichomonas. Negative for gonorrhea and chlamydia. Patient has positive right sided CVA tenderness. CT of the abdomen and pelvis reveals stranding of the right kidney indicative of pyelonephritis. -Continue ceftriaxone 1 g every 24 hours -IVF -Zofran prn nausea -Tylenol prn fever -Morphine prn pain as directed -New Urine culture pending DKA: Glucose 271, but beta hydroxybutyrate elevated at 3.67. Anion gap 17. Patient has had persistent vomiting. UA with 80 ketones and 500+ glucose. RR normal. Patient appears well and exhibits no altered mental status. -DKA protocol with insulin drip, fluids -Monitor BGLs -Zofran as above for n/v -NPO for now DVT prevention: TEDs, SCDs Written by Rand Morrell PA-C acting as scribe for Dr. Alvarez on 05/24/16 at ~1810. The documentation accurately reflects the work and decisions performed face-to- face by nj Dr. Alvarez on 05/24/16 at ~1810. Discussed Condition With ED physician, patient Physician Certification 2 Midnight Certification Type: Admission for Inpatient Services Order for Inpatient Services The services are ordered in accordance with Medicare regulations or non- Medicare payer requirements, as applicable. In the case of services not specified as inpatient-only, they are appropriately provided as inpatient services in accordance with the 2-midnight benchmark. Estimated LOS (days): 2 days is the estimated time the patient will need to remain in the hospital, assuming treatment plan goals are met and no additional complications. Post-Hospital Plan: Home Problem Qualifiers (1) DKA (diabetic ketoacidoses): Qualified Code: E10.10 - Diabetic ketoacidosis without coma associated with type 1 diabetes mellitus Rand Morrell May 24, 2016 18:19
[2016-05-24] MEDS ORDERED: MORPHINE SULFATE 4 MG/ML INJ IV PRN (19:00)
[2016-05-24] MEDS: DEXT 5%-NACL 0.9% 1000 ML INJ 1,000 ML IV SCH (19:10)
[2016-05-24 20:22] LABS: BICARBONATE 21.2 MEQ/L (21.0-32.0); MAGNESIUM 1.8 MG/DL (1.5-2.5); POTASSIUM 3.7 MEQ/L (3.5-5.1)
[2016-05-24] MEDS: ONDANSETRON HCL 4 MG/2 ML VIAL IVP PRN (20:42)
[2016-05-24] MEDS: MORPHINE SULFATE 4 MG/ML INJ IV PRN (20:43)
[2016-05-24] MEDS: POTASSIUM CHLORIDE 20 MEQ CONTROLLED RELEASE TAB PO ONE ×2 (21:45→22:05)
[2016-05-24] MEDS ORDERED: INSULIN DETEMIR 100 UNITS/ML VIAL SQ ONE (21:45)
[2016-05-24] MEDS ORDERED: ONDANSETRON HCL 4 MG/2 ML VIAL IV PUSH ONE (22:45)
[2016-05-24] MEDS: POTASSIUM CHLOR 20 MEQ PREMIX 100 ML IV SCH (23:30)
[2016-05-25] VITALS (27 sets, daily range): BP systolic 95–137; BP diastolic 48–71; PULSE 70–106; RESP 16–27; TEMP 98.3–103; O2SAT 97–99
[2016-05-25] MEDS: ACETAMINOPHEN 325 MG TAB PO PRN ×2 (01:27→15:50)
[2016-05-25] MEDS ORDERED: CHLORHEXIDINE GLUCONATE 2 % 1 PACK (2 CLOTHS)(extra cloths) TOP PRN (02:15)
[2016-05-25] MEDS: POTASSIUM CHLOR 20 MEQ PREMIX 100 ML IV SCH (02:21)
[2016-05-25] MEDS: CHLORHEXIDINE GLUCONATE 2 % 1 PACK (2 CLOTHS)(taper/protocol) TOP SCH ×2 (02:22→22:00)
[2016-05-25 02:33] LABS: ANION GAP 11 MEQ/L (5-15); BETA-HYDROXYBUTYRATE 1.28 MMOL/L (0.00-0.39); BICARBONATE 16.6 MEQ/L (21.0-32.0); BLOOD UREA NITROGEN 5 MG/DL (7-18); CHLORIDE 110 MEQ/L (98-107); GLOMERULAR FILTRATION RATE 177 ML/MIN (>89); MAGNESIUM 1.7 MG/DL (1.5-2.5); SODIUM (NA) 138 MEQ/L (136-145)
[2016-05-25 02:34] LABS: POTASSIUM 5.5 MEQ/L (3.5-5.1)
[2016-05-25] MEDS ORDERED: SODIUM PHOSPHATE INJ 30 MMOL in SODIUM CHLOR 0.9% 250 ML INJ 250 ML IV ONE (03:15)
[2016-05-25] MEDS: DEXT 5%-NACL 0.9% 1000 ML INJ 1,000 ML IV SCH (04:54)
[2016-05-25] MEDS: MORPHINE SULFATE 4 MG/ML INJ IV PRN ×2 (05:49→13:19)
[2016-05-25] MEDS: ONDANSETRON HCL 4 MG/2 ML VIAL IVP PRN ×3 (05:50→20:04)
[2016-05-25 08:38] LABS: BICARBONATE 19.1 MEQ/L (21.0-32.0); MAGNESIUM 1.5 MG/DL (1.5-2.5); POTASSIUM 4.1 MEQ/L (3.5-5.1)
[2016-05-25] MEDS ORDERED: DC Insulin drip 2 hrs post basal insulin dose XX ONE (08:45)
[2016-05-25] MEDS ORDERED: DEXTROSE 50% IN WATER 50 ML VIAL(D50) IV PUSH PRN (08:45)
[2016-05-25] MEDS ORDERED: DC previous DKA orders (HMC 1917) XX ONE (08:45)
[2016-05-25] MEDS ORDERED: PROMETHAZINE HCL 25 MG SUPP PR PRN (08:45)
[2016-05-25] MEDS ORDERED: GLUCAGON 1 MG/ML VIAL OTHER PRN (08:45)
--- NOTE | 2016-05-25 08:50 | HHI.PR ---
Subjective Remarks Follow-up for DKA, pyelonephritis. Patient admits to feeling nauseous stating that started when she woke up this morning. She admits to right sided abdominal pain still. She states she drank 2 cups of water and had a small amount of soup. RN states that there was confusion regarding the insulin orders. Dr. Mccallum was contacted last night and advised to continue at rate of 3 , but nurse continued to titrate so was confusion. Patient additionally was given dose of Levemir, blood glucose level remained high. Objective Vitals Vital Signs Date Time Temp Pulse Resp B/P Pulse Ox O2 Delivery O2 Flow Rate FiO2 05/25/16 06:00 86 23 95/48 98 05/25/16 06:00 86 05/25/16 05:00 84 21 98/54 98 05/25/16 05:00 84 05/25/16 04:00 88 05/25/16 04:00 99.0 88 25 109/56 98 05/25/16 03:00 99.0 106 27 109/60 97 05/25/16 02:29 98.6 05/25/16 02:00 102 27 112/52 98 05/25/16 02:00 102 05/25/16 01:00 123 18 118/55 98 05/25/16 01:00 103.0 106 23 135/61 98 05/25/16 01:00 106 05/25/16 00:58 135/61 05/24/16 22:00 99.5 118 18 128/75 97 Room Air 05/24/16 21:01 96 21 05/24/16 21:00 16 05/24/16 19:35 99.4 93 16 125/64 96 Room Air 05/24/16 18:44 85 17 138/76 98 Room Air 05/24/16 16:36 98.3 80 15 136/72 98 Room Air 05/24/16 15:10 98.3 78 15 122/75 97 Room Air 05/24/16 15:08 15 05/24/16 15:08 15 05/24/16 14:05 15 05/24/16 13:30 99 Room Air 05/24/16 12:26 100.7 115 16 124/78 98 I/O 05/24/16 05/24/16 05/24/16 05/25/16 05/25/16 05/25/16 07:00 15:00 23:00 07:00 15:00 23:00 Intake Total 200 ml 1822 ml Output Total 1100 ml 600 ml Balance -900 ml 1222 ml Intake Oral 480 ml IV Total 200 ml 1342 ml Output Urine Total 700 ml 600 ml Emesis 400 ml # Voids 2 1 Result Diagram: 05/24/16 1345 05/25/16 0210 Objective Remarks GENERAL: Well-developed, well-nourished patient in no apparent distress, but appears ill. SKIN: Warm and dry. HEAD: Atraumatic. Normocephalic. NECK: Trachea midline. CARDIOVASCULAR: Tachycardic rate,105 on tele with regular rhythm. RESPIRATORY: No accessory muscle use. Clear to auscultation. Breath sounds equal bilaterally. GASTROINTESTINAL: Abdomen soft, nondistended. No grimace with abdominal palpation. NEUROLOGICAL: Awake and alert. Motor grossly within normal limits. Normal speech. PSYCHIATRIC: Appropriate mood and affect; insight and judgment normal. Urinary Catheter: No Vascular Central Line Catheter: No A/P Problem List: (1) Sepsis ICD Code: A41.9 Status: Acute (2) DKA (diabetic ketoacidoses) ICD Code: E13.10 Status: Acute (3) Pyelonephritis ICD Code: N12 Status: Acute Assessment and Plan 26-year-old female with: Sepsis: Tachycardic 115. White blood cell count 15.8. Source of infection pyelonephritis. Lactic acid normal. -Telemetry, vitals -IV fluids -Antibiotics as below -Blood cultures 2 pending -AM CBC pending Pyelonephritis: UA reviewed with 9-14 white blood cells, trace blood. No leukocyte esterase or nitrites. UA/culture was performed on 05/22 and appeared as contamination. Patient had pelvic exam performed on 05/22 in ED which clinically indicated yeast yet wet prep was negative for yeast as well as BV and Trichomonas. Negative for gonorrhea and chlamydia. Patient has positive right sided CVA tenderness. CT of the abdomen and pelvis reveals stranding of the right kidney indicative of pyelonephritis. -Continue ceftriaxone 1 g every 24 hours -IVF -Zofran prn nausea. Patient has continued nausea. Add phenergan suppository. -Tylenol prn fever -Morphine prn pain as directed -New Urine culture pending DKA: Initial glucose in ED 271. Beta hydroxybutyrate elevated at 3.67. Anion gap 17-->now closed. Patient had persistent vomiting. UA with 80 ketones and 500+ glucose. RR normal. BGL 254 this morning. -Stop DKA protocol -Start Levemir 20 units qhs -Bedside Accu-Cheks with Low-dose NovoLog SSI -Zofran as above for n/v -Advance to diabetic diet DVT prevention: TEDs, SCDs Written by Rand Morrell PA-C acting as scribe for Dr. Alvarez on 05/25/16 at 0800. The documentation accurately reflects the work and decisions performed face-to- face by me Dr. Alvarez on 05/25/16 at 0800. Problem Qualifiers (1) DKA (diabetic ketoacidoses): Qualified Code: E10.10 - Diabetic ketoacidosis without coma associated with type 1 diabetes mellitus Rand Morrell May 25, 2016 08:50
[2016-05-25 08:51] LABS: AUTOMATED NEUTROPHIL # 6.9 TH/MM3 (1.8-7.7); BASOPHIL # 0.1 TH/MM3 (0-0.2); BASOPHIL % 0.7 % (0.0-2.0); EOSINOPHIL % 0.3 % (0.0-4.0); HEMATOCRIT 38.2 % (35.0-46.0); LYMPH % 14.3 % (9.0-44.0); LYMPHOCYTE # 1.3 TH/MM3 (1.0-4.8); MEAN CELL VOLUME 89.7 FL (80.0-100.0); MEAN CORPUSCULAR HEMOGLOBIN 29.2 PG (27.0-34.0); MEAN CORPUSCULAR HGB CONC 32.5 % (32.0-36.0); MONO % 9.3 % (0.0-8.0); NEUT % 75.4 % (16.0-70.0); PLATELET COUNT 216 TH/MM3 (150-450); RED BLOOD COUNT 4.26 MIL/MM3 (4.00-5.30); RED CELL DISTRIBUTION WIDTH 11.3 % (11.6-17.2); WHITE BLOOD COUNT 9.2 TH/MM3 (4.0-11.0)
[2016-05-25 08:59] LABS: HEMO FLAGS DIFF FINAL
[2016-05-25] MEDS: SODIUM CHLOR 0.9% 1000 ML INJ 1,000 ML IV SCH ×2 (09:18→21:55)
[2016-05-25] MEDS: cefTRIAXone INJ 1,000 MG in SODIUM CHLORIDE 0.9% INJ 100 ML IV SCH (12:15)
[2016-05-25] MEDS: INSULIN ASPART SUPPLEMENTAL SCALE SQ SCH ×3 (12:15→20:05)
[2016-05-25 13:40] LABS: POTASSIUM 3.3 MEQ/L (3.5-5.1)
[2016-05-25 13:44] LABS: BICARBONATE 19.2 MEQ/L (21.0-32.0); MAGNESIUM 1.7 MG/DL (1.5-2.5)
[2016-05-25 13:51] LABS: BETA-HYDROXYBUTYRATE 1.05 MMOL/L (0.00-0.39)
[2016-05-25] MEDS: LEVOTHYROXINE SODIUM 150 MCG TAB PO SCH (17:23)
[2016-05-25] MEDS: LIOTHYRONINE SODIUM 5 MCG TAB PO SCH (17:23)
[2016-05-25 17:38] LABS: HEMOGLOBIN A1a 0.8 %; HEMOGLOBIN A1b 2.1 %; HEMOGLOBIN Ao 79.3 %; HEMOGLOBIN LA1C 2.9 %; HEMOGLOBIN P3 4.7 %
[2016-05-25] MEDS: INSULIN DETEMIR 100 UNITS/ML VIAL SQ SCH (20:06)
[2016-05-26] VITALS (18 sets, daily range): BP systolic 91–128; BP diastolic 47–72; PULSE 72–98; RESP 14–27; TEMP 97.6–98.6; O2SAT 96–100
[2016-05-26] MEDS: ACETAMINOPHEN 325 MG TAB PO PRN ×2 (00:02→06:08)
[2016-05-26] MEDS: LEVOTHYROXINE SODIUM 150 MCG TAB PO SCH (06:07)
[2016-05-26] MEDS: INSULIN ASPART SUPPLEMENTAL SCALE SQ SCH ×4 (06:21→20:30)
[2016-05-26] MEDS: LIOTHYRONINE SODIUM 5 MCG TAB PO SCH (08:35)
[2016-05-26] MEDS: SODIUM CHLOR 0.9% 1000 ML INJ 1,000 ML IV SCH (08:36)
[2016-05-26] MEDS ORDERED: PNEUMOCOCCAL POLYVALENT INJ 25 MCG/0.5 ML SYR IM ONE (10:00)
[2016-05-26] MEDS ORDERED: INFLUENZA VIRUS VACCINE (QUADRIVALENT) 0.5 ML SYR IM ONE (10:00)
[2016-05-26 10:30] LABS: BASOPHIL % 0.4 % (0.0-2.0); EOSINOPHIL # 0.2 TH/MM3 (0-0.4); EOSINOPHIL % 1.5 % (0.0-4.0); HEMATOCRIT 35.7 % (35.0-46.0); LYMPH % 19.2 % (9.0-44.0); MEAN CELL VOLUME 89.2 FL (80.0-100.0); MEAN CORPUSCULAR HEMOGLOBIN 29.5 PG (27.0-34.0); MONO % 9.5 % (0.0-8.0); NEUT % 69.4 % (16.0-70.0); PLATELET COUNT 234 TH/MM3 (150-450); RED CELL DISTRIBUTION WIDTH 11.7 % (11.6-17.2); WHITE BLOOD COUNT 10.2 TH/MM3 (4.0-11.0)
[2016-05-26 10:32] LABS: HEMO FLAGS DIFF FINAL
[2016-05-26 10:36] LABS: POTASSIUM 3.2 MEQ/L (3.5-5.1)
[2016-05-26 10:39] LABS: BICARBONATE 23.9 MEQ/L (21.0-32.0)
--- NOTE | 2016-05-26 11:13 | HHI.PR ---
Subjective Remarks Follow-up pyelonephritis, DKA. Patient states that her flank pain has resolved. She has a cough productive of phlegm. Denies dyspnea or chest pain. Nausea and vomiting have resolved. Objective Vitals Vital Signs Date Time Temp Pulse Resp B/P Pulse Ox O2 Delivery O2 Flow Rate FiO2 05/26/16 10:33 73 05/26/16 10:00 80 22 119/60 05/26/16 09:00 86 24 116/60 05/26/16 08:13 96 21 05/26/16 08:00 98.5 78 22 114/61 96 05/26/16 08:00 73 05/26/16 07:00 86 27 115/65 05/26/16 06:00 87 05/26/16 06:00 86 20 124/67 05/26/16 05:00 77 22 05/26/16 04:00 83 05/26/16 04:00 97.6 97 22 128/69 100 05/26/16 03:00 72 20 111/55 05/26/16 02:00 80 05/26/16 02:00 80 20 91/47 05/26/16 01:00 78 111/54 05/26/16 00:00 98.3 90 16 124/68 100 05/26/16 00:00 82 05/25/16 23:00 81 05/25/16 22:45 78 16 98/55 05/25/16 22:00 80 05/25/16 22:00 78 05/25/16 21:00 74 05/25/16 20:00 98 21 05/25/16 20:00 80 05/25/16 20:00 98.3 106 24 123/65 97 05/25/16 18:00 70 05/25/16 18:00 70 21 05/25/16 17:00 92 22 109/55 05/25/16 16:00 94 05/25/16 16:00 99.5 94 27 137/65 99 05/25/16 15:00 82 23 119/58 05/25/16 14:06 96 23 134/71 05/25/16 14:00 92 05/25/16 13:00 100 23 114/71 05/25/16 12:00 88 05/25/16 12:00 99.2 88 20 119/63 99 I/O 05/25/16 05/25/16 05/25/16 05/26/16 05/26/16 05/26/16 06:59 14:59 22:59 06:59 14:59 22:59 Intake Total 1822 ml 2178 ml 1200 ml 1708 ml Output Total 600 ml 2000 ml 2000 ml 2000 ml Balance 1222 ml 178 ml -800 ml -292 ml Intake Oral 480 ml 660 ml 1200 ml 360 ml IV Total 1342 ml 1518 ml 1348 ml Output Urine Total 600 ml 2000 ml 2000 ml 2000 ml # Voids 1 4 # Bowel Movements 1 0 Result Diagram: 05/26/16 1006 05/26/16 1006 Imaging Last Impressions Abdomen/Pelvis CT 05/24/16 0000 Signed Impressions: Service Date/Time: April 17:05 - CONCLUSION: There is questionable inflammatory stranding around the right kidney. This is a nonspecific finding but can be seen with pyelonephritis which would fit with the clinical history. This condition is ideally diagnosed on a contrast enhanced abdomen and pelvis CT but since it was requested as a noncontrast examination consider followup if clinical diagnosis remains uncertain and symptoms persist. Jose Levy MD Objective Remarks General: No acute distress. Heart: Regular rate and rhythm. No murmur. Lungs: Clear to auscultation bilaterally. No wheezes, rales, or rhonchi. Breathing is nonlabored. Abdomen: Soft, nontender, nondistended. Extremities: No lower extremity edema. Psych: Alert and oriented. Procedures None Urinary Catheter: No Vascular Central Line Catheter: No A/P Problem List: (1) Sepsis ICD Code: A41.9 Status: Resolved (2) DKA (diabetic ketoacidoses) ICD Code: E13.10 Status: Acute (3) Pyelonephritis ICD Code: N12 Status: Acute (4) Diabetes type I ICD Code: E10.9 Status: Chronic (5) Hypokalemia ICD Code: E87.6 Status: Acute Assessment and Plan 1. Pyelonephritis: Improving. Continue antibiotics, IV fluids. 2. Sepsis: Secondary to pyelonephritis. Improved. 3. DKA: Resolved. Continue Levemir. Monitor Accu-Cheks and cover with sliding scale insulin. Diabetic diet. 4. Nausea/vomiting: Resolved. 5. Hypokalemia: Supplement potassium. Recheck labs in the morning. 6. DVT prophylaxis: BL[place]OM [place]. Discharge Planning Transfer to medical/surgical floor. Possible discharge home tomorrow. Problem Qualifiers (1) DKA (diabetic ketoacidoses): Qualified Code: E10.10 - Diabetic ketoacidosis without coma associated with type 1 diabetes mellitus Lino Alvarez MD May 26, 2016 11:12
[2016-05-26] MEDS ORDERED: ACETAMINOPHEN/HYDROcodone 325 MG/7.5 MG TAB PO PRN (11:15)
[2016-05-26] MEDS: NS + KCL 20 MEQ INJ 1,000 ML IV SCH (12:36)
[2016-05-26] MEDS: cefTRIAXone INJ 1,000 MG in SODIUM CHLORIDE 0.9% INJ 100 ML IV SCH (12:36)
[2016-05-26] MEDS: BENZONATATE 100 MG CAP PO PRN ×2 (13:10→18:03)
[2016-05-26] MEDS: POTASSIUM CHLOR 20 MEQ PREMIX 100 ML IV SCH ×2 (13:14→14:00)
[2016-05-26] MEDS: ACETAMINOPHEN/HYDROcodone 325 MG/5 MG TAB PO PRN (18:18)
[2016-05-26] MEDS ORDERED: POTASSIUM CHLOR 20 MEQ PREMIX 100 ML IV ONE (18:30)
[2016-05-26] MEDS: INSULIN DETEMIR 100 UNITS/ML VIAL SQ SCH (20:30)
[2016-05-27] VITALS: BP 125/82; PULSE 88; RESP 20; TEMP 98; O2SAT 99
[2016-05-27] MEDS: NS + KCL 20 MEQ INJ 1,000 ML IV SCH (00:14)
[2016-05-27] MEDS: CHLORHEXIDINE GLUCONATE 2 % 1 PACK (2 CLOTHS)(taper/protocol) TOP SCH (00:15)
[2016-05-27] MEDS: ACETAMINOPHEN/HYDROcodone 325 MG/5 MG TAB PO PRN (01:26)
[2016-05-27] MEDS: ONDANSETRON HCL 4 MG/2 ML VIAL IVP PRN (03:57)
[2016-05-27] MEDS: LEVOTHYROXINE SODIUM 150 MCG TAB PO SCH (06:24)
[2016-05-27] MEDS: INSULIN ASPART SUPPLEMENTAL SCALE SQ SCH (06:28)
[2016-05-27 06:59] LABS: POTASSIUM 3.7 MEQ/L (3.5-5.1)
[2016-05-27 07:05] LABS: BICARBONATE 25.5 MEQ/L (21.0-32.0)
[2016-05-27 07:59] VITALS: BP 125/84; PULSE 80; RESP 20; TEMP 99.6; O2SAT 96
[2016-05-27] MEDS ORDERED: CIPR500T2 PO (08:08)
[2016-05-27] MEDS ORDERED: PROM12.54 PO (08:08)
[2016-05-27] MEDS ORDERED: HYDR-3516 PO (08:08)
--- NOTE | 2016-05-27 08:08 | HHI.DCPOC ---
Discharge Care Plan Diagnosis: (1) Diabetes type I (2) HTN (hypertension) (3) Hypothyroid (4) Hypokalemia (5) Sepsis (6) DKA (diabetic ketoacidoses) (7) Pyelonephritis Goals to Promote Your Health * To prevent worsening of your condition and complications * To maintain your health at the optimal level Directions to Meet Your Goals Take your medications as prescribed Follow your dietary instruction Follow activity as directed Keep your appointments as scheduled Take your immunizations and boosters as scheduled If your symptoms worsen call your PCP, if no PCP go to Urgent Care Center or Emergency Room Smoking is Dangerous to Your Health. Avoid second hand smoke Call the 24-hour hour crisis hotline for domestic abuse at Lino Alvarez MD May 27, 2016 08:08
--- NOTE | 2016-05-27 08:11 | HHI.DS ---
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 The patient states she had a UTI and took antibiotics without relief. She states she also took Monistat without relief. She states she came to the ED 2 days ago and was prescribed Diflucan for yeast infection. She states she has had fevers, chills, and body aches. She states she has been vomiting nonstop for the last 2 days. She states she has had recurrent fevers and is taking 600 mg ibuprofen and Tylenol without alleviation. Admits to dysuria but denies any increased urinary frequency. Denies any diarrhea. She admits to cough and left-sided chest pain in the morning. CBC/BMP: 05/26/16 1006 05/27/16 0627 Significant Findings Laboratory Tests Test 05/24/16 05/24/16 05/24/16 05/24/16 13:45 15:02 16:00 19:50 White Blood Count 15.8 TH/MM3 (4.0-11.0) Red Cell Distribution Width 11.4 % (11.6-17.2) Neutrophils (%) (Auto) 85.3 % (16.0-70.0) Lymphocytes (%) (Auto) 8.3 % (9.0-44.0) Neutrophils # (Auto) 13.5 TH/MM3 (1.8-7.7) Sodium Level 134 MEQ/L (136-145) Carbon Dioxide Level 15.9 MEQ/L (21.0-32.0) Anion Gap 17 MEQ/L (5-15) Random Glucose 271 MG/DL 178 MG/DL (74-106) (74-106) Aspartate Amino Transf 8 U/L (15-37) (AST/SGOT) Albumin 3.1 GM/DL (3.4-5.0) Lipase 54 U/L (73-393) Urine Glucose (UA) 500 mg/dL (NEG) Urine Ketones 80 OR GREATER mg/dL (NEG) Urine Occult Blood TRACE (NEG) Urine WBC 9-14 /hpf (0-5) Urine Bacteria RARE /hpf (NONE) Venous Blood pH 7.33 (7.360-7.400) Venous Blood Partial Pressure 30 mmHg (44-48) CO2 Venous Blood Partial Pressure 57 mmHg (35-40) O2 Venous Blood HCO3 16 mmol/L (22-26) Venous Blood Oxygen Saturation 85 % (70-76) Venous Blood Base Excess -9.1 mmol/L (-2-2) B-Hydroxybutyrate 3.67 MMOL/L (0.00-0.39) Chloride Level 110 MEQ/L (98-107) Phosphorus Level 1.5 MG/DL (2.5-4.9) Test 05/25/16 05/25/16 05/25/16 05/26/16 02:10 07:40 13:25 10:06 Potassium Level 5.5 MEQ/L 3.3 MEQ/L 3.2 MEQ/L (3.5-5.1) (3.5-5.1) (3.5-5.1) Chloride Level 110 MEQ/L 109 MEQ/L (98-107) (98-107) Carbon Dioxide Level 16.6 MEQ/L 19.1 MEQ/L 19.2 MEQ/L (21.0-32.0) (21.0-32.0) (21.0-32.0) Blood Urea Nitrogen 5 MG/DL (7-18) 3 MG/DL (7-18) 2 MG/DL (7-18) 5 MG/DL (7-18) Creatinine 0.43 MG/DL 0.49 MG/DL 0.36 MG/DL (0.50-1.00) (0.50-1.00) (0.50-1.00) Random Glucose 225 MG/DL 254 MG/DL 242 MG/DL 210 MG/DL (74-106) (74-106) (74-106) (74-106) Hemoglobin A1c 9.2 % (4.3-6.0) Calcium Level 7.9 MG/DL 8.0 MG/DL 8.0 MG/DL 7.9 MG/DL (8.5-10.1) (8.5-10.1) (8.5-10.1) (8.5-10.1) Phosphorus Level 0.9 MG/DL 1.5 MG/DL (2.5-4.9) (2.5-4.9) B-Hydroxybutyrate 1.28 MMOL/L 1.05 MMOL/L (0.00-0.39) (0.00-0.39) Red Cell Distribution Width 11.3 % (11.6-17.2) Neutrophils (%) (Auto) 75.4 % (16.0-70.0) Monocytes (%) (Auto) 9.3 % (0.0-8.0) 9.5 % (0.0-8.0) Monocytes # (Auto) 1.0 TH/MM3 (0-0.9) Test 05/27/16 06:27 Creatinine 0.38 MG/DL (0.50-1.00) Random Glucose 209 MG/DL (74-106) Calcium Level 8.3 MG/DL (8.5-10.1) Imaging Last Impressions Abdomen/Pelvis CT 05/24/16 0000 Signed Impressions: Service Date/Time: April 17:05 - CONCLUSION: There is questionable inflammatory stranding around the right kidney. This is a nonspecific finding but can be seen with pyelonephritis which would fit with the clinical history. This condition is ideally diagnosed on a contrast enhanced abdomen and pelvis CT but since it was requested as a noncontrast examination consider followup if clinical diagnosis remains uncertain and symptoms persist. Jose Levy MD PE at Discharge General: No acute distress. Heart: Regular rate and rhythm. No murmur. Lungs: Clear to auscultation bilaterally. No wheezes, rales, or rhonchi. Breathing is nonlabored. Abdomen: Soft, nontender, nondistended. Minimal CVA tenderness on the right. Extremities: No lower extremity edema. Psych: Alert and oriented. Hospital Course The patient was admitted for management of sepsis secondary to pyelonephritis. Patient also had DKA and was admitted to the ICU on the DKA protocol. Her glucose and electrolytes improved. She was transitioned to subcutaneous insulin and was started on a diabetic diet. Her symptoms improved including the flank abdominal pain. Nausea and vomiting improved. On the day of discharge, the patient was felt to be stable for discharge home. Pt Condition on Discharge: Stable Discharge Disposition: Discharge Home Discharge Time: <= 30 minutes Discharge Instructions DIET: Follow Instructions for: Diabetic Diet Activities you can perform: Regular-No Restrictions Follow up Referrals: PCP Follow-up - 1 Week New Medications: Ciprofloxacin (Ciprofloxacin) 500 Mg Tab 500 MG PO BID Infection #12 Ref 0 TAB Promethazine (Promethazine) 12.5 Mg Tab 12.5 MG PO Q6H PRN NAUSEA OR VOMITING #20 Ref 0 TAB Hydrocodone-Acetaminophen (Hydrocodone-Acetaminophen) 5-325 mg Tab 1 TAB PO Q6H PRN PAIN SCALE 1 TO 10 #15 Ref 0 TAB Continued Medications: Insulin Glargine Inj (Lantus Inj) 1,000 Unit/10 Ml Vial 30 UNITS SQ HS Blood Sugar Management Ref 0 VIAL Insulin Lispro (Human) Inj (Humalog Inj) 1,000 Unit/10 Ml Vial 2-12 UNITS SQ ACHS Max dose at bedtime:( )units; sugars < 70,(0)units; sugars 150-199,(2)units; sugars 200-249,(4)units; sugars 250-299,(7)units; sugars 300- 349,(10)units; sugars more than 349,(12)units. Blood Sugar Management #1 Ref 0 VIAL Levothyroxine (Synthroid) 300 Mcg Tab 300 MCG PO DAILY Thyroid #30 Ref 0 TAB Liothyronine (Cytomel) 5 Mcg Tab 5 MCG PO DAILY Thyroid Supplement #30 Ref 0 TAB Discontinued Medications: Ibuprofen (Ibuprofen) 600 Mg Tab 600 MG PO Q6H PRN PAIN LESS THAN 5 ON SCALE #20 Ref 0 TAB Tramadol (Ultram) 50 Mg Tab 50 MG PO Q6H PRN PAIN #12 Ref 0 TAB Lino Alvarez MD May 27, 2016 08:11
--- NOTE | 2016-05-27 08:12 | HHI.PR ---
Subjective Remarks Follow-up for pyelonephritis, DKA. Patient admits to "a little pain" over the right side of abdomen. States she had some nausea last night but denies any vomiting. Patient is eating and drinking appropriately. States she had some R sided cp. She states she is ready to be discharged. Objective Vitals Vital Signs Date Time Temp Pulse Resp B/P Pulse Ox O2 Delivery O2 Flow Rate FiO2 05/27/16 07:59 99.6 80 20 125/84 96 05/27/16 00:00 98.0 88 20 125/82 99 05/26/16 20:50 98 Nasal Cannula 2.00 05/26/16 20:00 98.1 91 20 125/71 97 05/26/16 16:00 98.0 86 19 120/72 99 05/26/16 13:49 77 14 98 05/26/16 12:00 98.6 98 24 123/68 96 05/26/16 12:00 73 05/26/16 10:33 73 05/26/16 10:00 80 22 119/60 05/26/16 09:00 86 24 116/60 05/26/16 08:13 96 21 I/O 05/26/16 05/26/16 05/26/16 05/27/16 05/27/16 05/27/16 07:00 15:00 23:00 07:00 15:00 23:00 Intake Total 1708 ml 1690 ml 1078 ml 559 ml Output Total 2000 ml 800 ml Balance -292 ml 890 ml 1078 ml 559 ml Intake Oral 360 ml 900 ml 280 ml IV Total 1348 ml 790 ml 798 ml 559 ml Output Urine Total 2000 ml 800 ml # Voids 2 # Bowel Movements 0 0 Result Diagram: 05/26/16 1006 05/27/16 0627 Imaging Last Impressions Abdomen/Pelvis CT 05/24/16 0000 Signed Impressions: Service Date/Time: April 17:05 - CONCLUSION: There is questionable inflammatory stranding around the right kidney. This is a nonspecific finding but can be seen with pyelonephritis which would fit with the clinical history. This condition is ideally diagnosed on a contrast enhanced abdomen and pelvis CT but since it was requested as a noncontrast examination consider followup if clinical diagnosis remains uncertain and symptoms persist. Jose Levy MD Objective Remarks GENERAL: Well-developed, well-nourished patient in no apparent distress. SKIN: Warm and dry. HEAD: Atraumatic. Normocephalic. NECK: Trachea midline. CHEST: No reproducible tenderness over R chest. CARDIOVASCULAR: Regular rate and rhythm. RESPIRATORY: No accessory muscle use. Clear to auscultation. Breath sounds equal bilaterally. GASTROINTESTINAL: Abdomen soft, non-tender, nondistended. BACK: Only mild right CVA tenderness, much improved. NEUROLOGICAL: Awake and alert. Motor grossly within normal limits. Normal speech. PSYCHIATRIC: Appropriate mood and affect; insight and judgment normal. Procedures None Urinary Catheter: No Vascular Central Line Catheter: No A/P Problem List: (1) Sepsis ICD Code: A41.9 Status: Resolved (2) DKA (diabetic ketoacidoses) ICD Code: E13.10 Status: Acute (3) Pyelonephritis ICD Code: N12 Status: Acute (4) Diabetes type I ICD Code: E10.9 Status: Chronic (5) Hypokalemia ICD Code: E87.6 Status: Acute Assessment and Plan 26-year-old female with: Sepsis: Tachycardic 115. White blood cell count 15.8. Source of infection pyelonephritis. Lactic acid normal. -Telemetry, vitals -IV fluids -Antibiotics as below -Blood cultures 2 NGTD -WBC count now normal. Pyelonephritis: UA reviewed with 9-14 white blood cells, trace blood. No leukocyte esterase or nitrites. UA/culture was performed on 05/22 and appeared as contamination. Patient had pelvic exam performed on 05/22 in ED which clinically indicated yeast yet wet prep was negative for yeast as well as BV and Trichomonas. Negative for gonorrhea and chlamydia. Patient has positive right sided CVA tenderness. CT of the abdomen and pelvis reveals stranding of the right kidney indicative of pyelonephritis. -Patient received ceftriaxone 1 g every 24 hours -IVF -Zofran and Phenergan prn nausea. Patient has continued nausea. -Tylenol prn fever -Morphine prn pain as directed -New Urine culture reveals probable contaminants. DKA: Initial glucose in ED 271. Beta hydroxybutyrate elevated at 3.67-->1.05. Anion gap 17-->now closed. Patient had persistent vomiting. UA with 80 ketones and 500+ glucose. RR normal. BGL improved to 199 this morning. -S/p DKA protocol -Continue Levemir 20 units qhs -Bedside Accu-Cheks with Low-dose NovoLog SSI -Antiemetics as above for n/v -Advance to diabetic diet Hypokalemia: Resolved s/p repletion. K+ 3.7. DVT prevention: TEDs, SCDs Written by Rand Morrell PA-C acting as scribe for Dr. Alvarez on 05/27/15 at ~0800. The documentation accurately reflects the work and decisions performed face-to- face by sc Dr. Alvarez on 05/27/15 at ~0800. Discharge Planning Patient ready for discharge. Problem Qualifiers (1) DKA (diabetic ketoacidoses): Qualified Code: E10.10 - Diabetic ketoacidosis without coma associated with type 1 diabetes mellitus Rand Morrell May 27, 2016 08:12
[2016-05-27] MEDS ORDERED: BENZ100 PO (09:22)
== END 2016-05-27 10:45 | disposition home or self-care (01) | DRG 871 ==
LOC: PHED 12:18 → PHEDA 17:47 → PHEDH 21:47 → PHICU 05-25 00:55 → PH3B 05-26 14:40
PROVIDERS: ADMIT Family Medicine; ATTEND Family Medicine
DX: A41.9 Sepsis, unspecified organism (principal); E10.10 Type 1 diabetes mellitus with ketoacidosis without coma; N10 Acute pyelonephritis; R11.2 Nausea with vomiting, unspecified; E87.6 Hypokalemia; E06.3 Autoimmune thyroiditis; F17.210 Nicotine dependence, cigarettes, uncomplicated; Z79.4 Long term (current) use of insulin; Z23 Encounter for immunization
CPT/HCPCS: 74176; 80048; 80053; 81001; 82010; 82805; 82948; 83036; 83605; 83690; 83735; 84100; 84703; 85025; 87040; 87086; 87641; 90471; 90686; 90732; 96365; 96375; G0008; G0009; J0696; J1815; J1817; J1885; J2270; J2405; J3480; J7030; J7042; J7050; Q2038